=== PATIENT | male | born 1985 ===

== ENCOUNTER 2018-07-20 11:55 | Emergency (ER) | payer MEDICAID ==
[2018-07-20 12:09] VITALS: RESP 16
--- NOTE | 2018-07-20 13:03 | C.PDOC ---
History Of Present Illness 33 year old male with no past medical history presents to the ED complaining of right flank pain ongoing for one week. Reports he was seen at [facility] on 07/15 and 07/16 for same presentation and he got labwork, bloodwork, and 2 CT scans done. Case discussed with EDMD at [facility]. Report from initial CT with contrast was "normal", second CT without contrast showed "gastric outlet obstruction with residual material in the stomach". He was told there was blood in the urine and was referred to Dr. Villegas, urologist. He was discharged on Levaquin daily. He was seen by Dr. Villegas on 07/17 and he has an upcoming colonoscopy appointment on 07/22. States he was instructed to take Ibuprofen for pain. Denies any fever, nausea, vomiting, urinary symptoms, chest pain, shortness of breath, or chills. Denies prior presentation of similar pain in the past. Denies any difficulty eating or drinking. Time Seen by Provider: 07/20/18 12:18 Chief Complaint (Nursing): Abdominal Pain History Per: Patient History/Exam Limitations: no limitations Onset/Duration Of Symptoms: Days Current Symptoms Are (Timing): Still Present Location Of Pain/Discomfort: Other (right flank ) Associated Symptoms: denies: Fever, Chills, Nausea, Vomiting, Diarrhea, Chest Pain, Constipation, Urinary Symptoms Past Medical History Reviewed: Historical Data, Nursing Documentation, Vital Signs Vital Signs: Last Vital Signs Temp 98.4 F 07/20/18 12:04 Pulse 71 07/20/18 12:04 Resp 16 07/20/18 12:04 BP 129/81 07/20/18 12:04 Pulse Ox 100 07/20/18 12:04 - Medical History PMH: No Chronic Diseases Surgical History: No Surg Hx Family History: States: No Known Family Hx - Social History Hx Alcohol Use: Yes Hx Substance Use: No - Immunization History Hx Tetanus Toxoid Vaccination: No Hx Influenza Vaccination: No Hx Pneumococcal Vaccination: No Review Of Systems Constitutional: Negative for: Fever, Chills Cardiovascular: Negative for: Chest Pain Respiratory: Negative for: Cough, Shortness of Breath Gastrointestinal: Positive for: Abdominal Pain (right flank ). Negative for: Nausea, Vomiting, Diarrhea Genitourinary: Negative for: Dysuria, Frequency, Hematuria Physical Exam - Physical Exam Appears: Non-toxic, No Acute Distress Skin: Warm, Dry, No Rash Head: Normacephalic Eye(s): bilateral: Normal Inspection Nose: Normal Oral Mucosa: Moist Neck: Supple Chest: Symmetrical Cardiovascular: Rhythm Regular Respiratory: Normal Breath Sounds, No Rales, No Rhonchi, No Wheezing Gastrointestinal/Abdominal: Soft, Tenderness (mild right sided tenderness) Back: CVA Tenderness (mild right sided ) Extremity: Normal ROM Extremity: Bilateral: Atraumatic, Normal Color And Temperature, Normal ROM Neurological/Psych: Oriented x3, Normal Speech Gait: Steady ED Course And Treatment - Laboratory Results Result Diagrams: 07/20/18 13:30 07/20/18 13:30 Lab Interpretation: Normal O2 Sat by Pulse Oximetry: 100 (RA) Pulse Ox Interpretation: Normal - Other Rad Obstructive series Interpretation: Normal bowel gas pattern. - CT Scan/US Abdominal ultrasound Other Rad Studies (CT/US): Read By Radiologist, Radiology Report Reviewed CT/US Interpretation: Accession No. : [id number]. Patient Name / ID : JASON CEDEÑO / [id number]. Exam Date : 07/20/2018 14:22:14 ( Approved ). Study Comment : Sex / Age : M / 33Y. Creator : Radhika Gallagher MD. Dictator : Radhika Gallagher MD. [employer] School Special Ed Teacher : Child Welfare Caseworker : Radhika Gallagher MD. Approver2 : Report Date : 07/20/2018 15:18:41. My Comment : . Date of service: 07/20/2018. HISTORY: right flank pain. COMPARISON: None. TECHNIQUE: Sonographic evaluation of the abdomen. FINDINGS: LIVER: Measures 14.55 cm. Normal echogenicity of the liver parenchyma. No mass. No intrahepatic bile duct dilatation. GALLBLADDER: Unremarkable. No gallstones. COMMON BILE DUCT: Measures mm. 4.5. PANCREAS: Unremarkable as visualized. No mass. No ductal dilatation. RIGHT KIDNEY: Measures 10.7 X 4.3 X 4.5cm. Normal echogenicity. No calculus, mass, or hydronephrosis. LEFT KIDNEY: Measures 11.1 X 4.98 X 5.35cm. Normal echogenicity. No calculus, mass, or hydronephrosis. SPLEEN: Normal in size and contour. No mass. AORTA: No aneurysmal dilatation. IVC: Unremarkable. OTHER FINDINGS: None. IMPRESSION: NO EVIDENCE OF ACUTE PATHOLOGY IN THE ABDOMEN. Reevaluation Time: 15:31 Reassessment Condition: Unchanged Medical Decision Making Medical Decision Making: Plan - Bloodwork - XR abdomen - UA Spoke with ED physician at [facility]. Stated initial CT scan with contrast was negative. Second CT scan without contrast showed a gastric outlet obstruction. Disposition Counseled Patient/Family Regarding: Studies Performed, Diagnosis, Need For Followup, Rx Given - Disposition Referrals: Thuy Abreu MD [Medical Doctor] - Disposition: HOME/ ROUTINE Disposition Time: 15:31 Condition: STABLE Additional Instructions: Continue taking the Levaquin as prescribed. Take Ibuprophen if needed for pain. Keep your Endoscopy appointment as scheduled. Prescriptions: Dicyclomine [Bentyl] 20 mg PO QID PRN #20 tab PRN Reason: Pain, Severe (8-10) Instructions: Flank Pain (DC) Forms: [facility] (Kiswahili) - Clinical Impression Clinical Impression: Right flank pain - Scribe Statement The provider has reviewed the documentation as recorded by the Scribjessica Haywood All medical record entries made by the Scribe were at my direction and personally dictated by me. I have reviewed the chart and agree that the record accurately reflects my personal performance of the history, physical exam, medical decision making, and the department course for this patient. I have also personally directed, reviewed, and agree with the discharge instructions and disposition.
[2018-07-20 13:22] LABS: SQUAMOUS EPITHIAL < 1 /hpf (0-5); URINE BILIRUBIN NEGATIVE (NEGATIVE); URINE BLOOD NEGATIVE (NEGATIVE); URINE CLARITY Clear (Clear); URINE COLOR Yellow (YELLOW); URINE GLUCOSE (UA) NORMAL (Normal); URINE LEUKOCYTE ESTERASE NEG Leu/uL (Negative); URINE PROTEIN NEGATIVE (NEGATIVE); URINE UROBILINOGEN NORMAL mg/dL (0.2-1.0)
[2018-07-20 13:44] LABS: BASO % 0.7 % (0.0-2.0); EOS # 0.1 K/uL (0.0-0.7); EOS % 1.1 % (0.0-4.0); HEMOGLOBIN 12.7 g/dL (12.0-18.0); LYMPH # 2.2 K/uL (1.0-4.3); LYMPH % 43.3 % (20.0-40.0); MEAN CELL VOLUME 71.2 fL (80.0-94.0); MEAN CORPUSCULAR HEMOGLOBIN 22.4 pg (27.0-31.0); MEAN CORPUSCULAR HGB CONC 31.4 g/dL (33.0-37.0); MEAN PLATELET VOLUME 9.9 fL (7.2-11.7); MONO # 0.4 K/uL (0.0-0.8); MONO % 8.2 % (0.0-10.0); NEUT # 2.3 K/uL (1.8-7.0); NEUT % 46.7 % (50.0-75.0); NRBC % 0.1 % (0.0-2.0); RBC 5.67 Mil/uL (4.40-5.90); RED CELL DISTRIBUTION WIDTH 14.6 % (11.5-14.5)
[2018-07-20 13:50] LABS: ALB/GLOB RATIO 1.2 (1.0-2.1); ALBUMIN 4.6 g/dL (3.5-5.0); ALT/SGPT 22 U/L (21-72); AST/SGOT 24 U/L (17-59); BLOOD UREA NITROGEN 15 mg/dL (9-20); CALCIUM 9.7 mg/dl (8.6-10.4); GFR NON-AFRICAN AMERICAN > 60; LIPASE 71 U/L (23-300)
--- NOTE | 2018-07-20 15:22 | US ---
Date of service: 07/20/2018 HISTORY: right flank pain COMPARISON: None. TECHNIQUE: Sonographic evaluation of the abdomen. FINDINGS: LIVER: Measures 14.55 cm. Normal echogenicity of the liver parenchyma. No mass. No intrahepatic bile duct dilatation. GALLBLADDER: Unremarkable. No gallstones. COMMON BILE DUCT: Measures mm. 4.5 PANCREAS: Unremarkable as visualized. No mass. No ductal dilatation. RIGHT KIDNEY: Measures 10.7 X 4.3 X 4.5cm. Normal echogenicity. No calculus, mass, or hydronephrosis. LEFT KIDNEY: Measures 11.1 X 4.98 X 5.35cm. Normal echogenicity. No calculus, mass, or hydronephrosis. SPLEEN: Normal in size and contour. No mass. AORTA: No aneurysmal dilatation. IVC: Unremarkable. OTHER FINDINGS: None. IMPRESSION: NO EVIDENCE OF ACUTE PATHOLOGY IN THE ABDOMEN.
[2018-07-20 15:48] VITALS: BP 112/69; PULSE 60; TEMP 98.2; O2SAT 98
--- NOTE | 2018-07-20 16:38 | RAD ---
Date of service: 07/20/2018 PROCEDURE: Radiographs of the chest and abdomen (obstructive series) HISTORY: r/o obstruction COMPARISON: No prior. TECHNIQUE: AP radiograph of the chest, with upright and supine radiographs of the abdomen. FINDINGS: CHEST: Lungs: Clear. Cardiovascular: Normal size heart. No pulmonary vascular congestion. No aortic atherosclerotic calcification present Pleura: No pleural fluid. No pneumothorax. Other findings: None. ABDOMEN AND PELVIS: Bowel: Unremarkable bowel gas pattern. No evidence of mechanical obstruction. Free air: None. Bones: Unremarkable. Other findings: None. IMPRESSION: Unremarkable radiographs of chest and abdomen. No evidence of mechanical bowel obstruction.
== END 2018-07-20 15:47 | disposition home or self-care (01) ==
LOC: C.ER 11:55
DX: R10.9 Unspecified abdominal pain (principal)